=== PATIENT | female | born 1975 | race Two or more races ===

== ENCOUNTER → 2024-12-06 | Outpatient (CLI) | payer OTHER, SELFPAY ==
--- NOTE | 2024-12-06 07:30 | XR_ITS ---
Examination: Breast ultrasound, unilateral, right Date and time of exam: December 06, 2024 0727 hours INDICATIONS: Mammogram October 07, 2023 BI-RADS Category 2, breast ultrasound October 07, 2023 multiple right breast nodules Technique: Real-time little scale ultrasonographic imaging performed right breast including all 4 quadrants as well as nipple retroareolar and axillary region. Findings: 6:00 cyst 12 x 10 mm 9:00 cyst 9 x 6 mm 10:00 cyst 7 x 8 mm Smaller cysts No solid nodules IMPRESSION: BI-RADS Category 2: Benign findings
--- NOTE | 2024-12-06 07:41 | XR_ITS ---
Examination: Screening digital mammography, bilateral Computer aided detection 3-D breast Tomosynthesis, bilateral Date and time of exam: December 06, 2024 0747 hours Compared to mammograms dated to February 12, 2015 Indication: Screening Technique: Nonmagnified MLO, CC views of the breasts to been obtained, reconstructed from 3-D Tomosynthesis images. R2 computer aided detection program utilized for evaluation of suspicious masses and/or abnormal calcifications. 3-D Tomosynthesis images obtained. Findings: The breasts are heterogeneously dense, which may obscure small masses 17 mm focal asymmetry inner right breast CC view, 6 cm from the nipple 15 mm focal asymmetry inner left breast, 7.9 cm from the nipple Impression: BI-RADS Category 0: Incomplete: Need additional imaging evaluation Focal asymmetries inner right and left breast as above, recommend follow-up spot tomographic views inner upper quadrants right and left breast.
== END | disposition home or self-care (01) ==
LOC: CDIM 07:01
PROVIDERS: Referring Provider Physician Assistant; Visit Provider Physician Assistant
DX: Z12.31 Encounter for screening mammogram for malignant neoplasm of breast (principal); N64.89 Other specified disorders of breast; N60.01 Solitary cyst of right breast
CPT/HCPCS: 76641; 77063; 77067

== ENCOUNTER → 2025-02-10 | Outpatient (CLI) | payer OTHER, SELFPAY ==
--- NOTE | 2025-02-10 09:45 | XR_ITS ---
Examination: Diagnostic digital mammography, bilateral Computer aided detection 3-D breast Tomosynthesis, bilateral Date and time of exam: 02/10/2025, 9:49 AM Comparisons: December 16, 2024 Indications:Further evaluation of bilateral abnormality seen on recent screening exam. Technique: Nonmagnified MLO, CC views of the breasts to been obtained, reconstructed from 3-D Tomosynthesis images. R2 computer aided detection program utilized for evaluation of suspicious masses and/or abnormal calcifications. 3-D Tomosynthesis images obtained. Findings: The breasts are heterogeneously dense, which may obscure small masses. No evidence of abnormal masses or suspicious calcifications. Previously described abnormalities do not persist on spot compression views and represents superimposition of normal fibroglandular tissue. Impression: BI-RADS category 1: Negative findings (within normal) Recommend 1 year follow-up mammogram
== END | disposition home or self-care (01) ==
LOC: CDIM 09:39
PROVIDERS: Referring Provider Physician Assistant; Visit Provider Physician Assistant
DX: R92.313 Mammographic fatty tissue density, bilateral breasts (principal)
CPT/HCPCS: 77062; 77066; G0279